=== PATIENT | male | born 1980 | race Caucasian/White ===

== ENCOUNTER 2022-09-02 15:05 | Outpatient (CLI) | payer BC, SELFPAY | END 2022-09-02 15:06 | disposition home or self-care (01) | LOC: NFLDREF 09-03 23:00 | PROVIDERS: PCP Internal Medicine; Referring Provider Internal Medicine; Visit Provider Internal Medicine | DX: I10 Essential (primary) hypertension (principal); E78.5 Hyperlipidemia, unspecified | CPT/HCPCS: 80048; 80061 ==

== ENCOUNTER 2022-12-04 07:50 | Outpatient (CLI) | payer BC, SELFPAY | END 2022-12-04 07:51 | disposition home or self-care (01) | LOC: NFLDREF 14:40 | PROVIDERS: PCP Internal Medicine; Referring Provider Internal Medicine; Visit Provider Internal Medicine | DX: E78.5 Hyperlipidemia, unspecified (principal) | CPT/HCPCS: 80061 ==

== ENCOUNTER 2024-01-26 09:10 | Outpatient (CLI) | payer BC, SELFPAY | END 2024-01-26 09:11 | disposition home or self-care (01) | LOC: NFLDREF 01-28 12:01 | PROVIDERS: PCP Internal Medicine; Referring Provider Internal Medicine; Visit Provider Internal Medicine | DX: R73.03 Prediabetes (principal); E78.5 Hyperlipidemia, unspecified; I10 Essential (primary) hypertension | CPT/HCPCS: 80048; 80061 ==